=== PATIENT | female | born 1945 | race Caucasian/White ===

== ENCOUNTER → 2019-04-04 | Outpatient (CLI) | payer OTHER ==
[~2019-04-04] MED LIST: CIPROFLOXACIN500 M1 PO; FLAGYL500 MG PO; LEVOTHROID25 MCG PO; MULTIVITAMINS1 EAC7 PO; SYNTHROID PO; VITAMIN D1000 UNI1 PO; VITAMIN K100 MCG PO; [UNRECOGNIZED DRUG - OTHER] PO
== END ==
LOC: RAD 09:12
DX: M19.011 Primary osteoarthritis, right shoulder (principal)